=== PATIENT | male | born 1950 | race African-American/Black ===

== ENCOUNTER 2016-10-24 23:05 | Inpatient (IN) | payer MEDICARE, MEDICAID ==
[~2016-10-24] VITALS: Ht 182.9 cm; Wt 178.7 kg
[~2016-10-24 23:05] MED LIST: ASCO500T10 PO; ASPI-605 PO; AZIT1PAC PO; CARI350T PO; CHOL100044 PO; DOCU250C75 PO; FURO-144 PO; GABA-534 PO; GUAI120L24 PO; HYDR-548 PO; IPRA3AMP IH; LISI-603 PO; MAGN400O6 PO; MULT-24 PO; ONDA4TAB5 PO; PANT40TA4 PO; POTA-10 PO; SIMV10TA6 PO
[2016-10-24] MEDS ORDERED: ASPIRIN 81 MG TAB.CHEW ONE (23:19)
[2016-10-24] MEDS ORDERED: ASPIRIN 81 MG TAB.CHEW PO ONE (23:30)
[2016-10-25 00:06] LABS: ANION GAP 9 (5-14); CALCIUM, SERUM 8.6 mg/dL (8.5-10.1); CARBON DIOXIDE 33 mmol/L (21-32); CHLORIDE 107 mmol/L (98-107); CREATININE 0.8 mg/dL (0.6-1.3); GFR 117 mL/min (>60); GLUCOSE 115 mg/dL (74-106); SODIUM SERUM 145 mmol/L (136-145); UREA NITROGEN, BLOOD 11 mg/dL (7-18)
[2016-10-25 00:14] LABS: TROPONIN I < 0.017 ng/mL (0.00-0.056)
[2016-10-25 00:21] LABS: INR 0.99 (0.87-1.13); PROTHROMBIN TIME 10.7 SECS (9.5-12.7)
[2016-10-25 00:25] LABS: BASOPHILS # (AUTO) 0.1 /CMM (0.0-0.2); DIFF TOTAL % 100 %; EOSINOPHILS # (AUTO) 0.2 /CMM (0.0-0.7); EOSINOPHILS % (AUTO) 3.3 % (0.0-6.0); HEMATOCRIT 35 % (39-51); HEMOGLOBIN 10.3 g/dL (13.5-17.5); LYMPHOCYTES # (AUTO) 1.7 /CMM (0.8-4.8); LYMPHOCYTES % (AUTO) 23.4 % (20.0-44.0); MEAN CORPUSCULAR HEMOGLOBIN 23 PG (26.0-33.0); MEAN CORPUSCULAR HGB CONC 30 g/dl (31.0-36.0); MEAN CORPUSCULAR VOLUME 76 fL (80-96); MONOCYTES # (AUTO) 0.7 /CMM (0.1-1.30); MONOCYTES % (AUTO) 10.1 % (2.0-12.0); NEUTROPHILS # (AUTO) 4.4 /CMM (1.8-8.9); NEUTROPHILS % (AUTO) 61.2 % (43.0-81.0); PLATELET COUNT (AUTO) 298 /CMM (150-450); RED BLOOD CELL COUNT(AUTO) 4.54 MIL/uL (4.5-6.0); WHITE BLOOD COUNT (AUTO) 7.1 K/uL (4.3-11.0)
[2016-10-25 01:00] VITALS: BP 102/70
[2016-10-25 01:10] VITALS: BP 102/70
[2016-10-25] MEDS ORDERED: ENOXAPARIN SODIUM 30 MG/0.3 ML DISP.SYRIN SQ SCH ×2 (02:30→09:00)
[2016-10-25] MEDS ORDERED: MAG HYDROX/AL HYDROX/SIMETH 30 ML UDC PO PRN (02:30)
[2016-10-25] MEDS ORDERED: MAGNESIUM HYDROXIDE 30 ML UDC PO PRN (02:30)
[2016-10-25] MEDS ORDERED: ACETAMINOPHEN 325 MG TABLET PO PRN (02:30)
[2016-10-25] MEDS ORDERED: ONDANSETRON HCL/PF 4 MG/2 ML VIAL ONE (03:54)
[2016-10-25] MEDS ORDERED: MORPHINE SULFATE INJ 4 MG/ML DISP.SYRIN ONE (04:24)
[2016-10-25] MEDS: ONDANSETRON HCL/PF 4 MG/2 ML VIAL IVP PRN ×2 (04:29→09:42)
[2016-10-25] MEDS: MORPHINE SULFATE INJ 4 MG/ML DISP.SYRIN IV PRN ×2 (04:30→09:43)
[2016-10-25 04:41] VITALS: BP 127/73
[2016-10-25 06:22] LABS: BASOPHILS % (AUTO) 0.2 % (0.0-2.0); DIFF TOTAL % 100 %; EOSINOPHILS # (AUTO) 0.2 /CMM (0.0-0.7); HEMATOCRIT 33 % (39-51); HEMOGLOBIN 9.8 g/dL (13.5-17.5); LYMPHOCYTES # (AUTO) 2.1 /CMM (0.8-4.8); LYMPHOCYTES % (AUTO) 29.1 % (20.0-44.0); MEAN CORPUSCULAR HEMOGLOBIN 23 PG (26.0-33.0); MEAN CORPUSCULAR HGB CONC 30 g/dl (31.0-36.0); MEAN CORPUSCULAR VOLUME 76 fL (80-96); MONOCYTES # (AUTO) 0.8 /CMM (0.1-1.30); MONOCYTES % (AUTO) 11.5 % (2.0-12.0); NEUTROPHILS % (AUTO) 56.2 % (43.0-81.0); PLATELET COUNT (AUTO) 295 /CMM (150-450); RED BLOOD CELL COUNT(AUTO) 4.28 MIL/uL (4.5-6.0); WHITE BLOOD COUNT (AUTO) 7.1 K/uL (4.3-11.0)
[2016-10-25 06:29] LABS: ANION GAP 12 (5-14); CALCIUM, SERUM 8.5 mg/dL (8.5-10.1); CARBON DIOXIDE 29 mmol/L (21-32); CHLORIDE 105 mmol/L (98-107); CREATININE 0.8 mg/dL (0.6-1.3); GFR 117 mL/min (>60); GLUCOSE 156 mg/dL (74-106); POTASSIUM 3.7 mmol/L (3.5-5.1); SODIUM SERUM 142 mmol/L (136-145); UREA NITROGEN, BLOOD 12 mg/dL (7-18)
[2016-10-25 06:41] LABS: TROPONIN I < 0.017 ng/mL (0.00-0.056)
[2016-10-25 06:42] LABS: CHOLESTEROL 157 mg/dL (<200); HDL CHOLESTEROL 64 mg/dL (40-60); LDL 76 mg/dL (0-99); TRIGLYCERIDES 97 mg/dL (30-150)
[2016-10-25 07:08] LABS: IRON, SERUM 20 ug/dl (50-175); PERCENT SATURATION 5 % (14-33); TOTAL IRON BINDING CAPACITY 376 ug/dl (250-450)
[2016-10-25] MEDS ORDERED: PANTOPRAZOLE 40 MG TABLET.DR PO SCH ×2 (07:30)
[2016-10-25 08:00] VITALS: BP 120/71
[2016-10-25] MEDS ORDERED: IPRATROPIUM NEB FS 0.5 MG/2.5 ML AMPUL.NEB NEB PRN (09:00)
[2016-10-25] MEDS ORDERED: ALBUTEROL FS 2.5 MG/0.5 ML VIAL.NEB NEB PRN (09:00)
[2016-10-25] MEDS: GABAPENTIN 300 MG CAPSULE PO SCH ×2 (09:22→17:32)
[2016-10-25] MEDS: FUROSEMIDE 40 MG TABLET PO SCH ×2 (09:23→17:32)
[2016-10-25] MEDS: DOCUSATE SODIUM 250 MG CAPSULE PO SCH ×2 (09:23→17:32)
[2016-10-25] MEDS: ASCORBIC ACID 500 MG TABLET PO SCH (09:23)
[2016-10-25] MEDS: ASPIRIN EC 81 MG TABLET.DR PO SCH (09:23)
[2016-10-25] MEDS: MULTIVITAMINS,THERAPEUTIC 1 UDTAB TABLET PO SCH (09:23)
[2016-10-25] MEDS: LISINOPRIL (20MG) 20 MG TABLET PO SCH (09:23)
[2016-10-25] MEDS: POTASSIUM CHLORIDE 10 MEQ TABLET.SA PO SCH (09:23)
[2016-10-25] MEDS: PANTOPRAZOLE 40 MG TABLET.DR PO SCH (09:23)
[2016-10-25] MEDS: CHOLECALCIFEROL 1,000 UNIT TABLET (VIT D3) PO SCH (09:23)
[2016-10-25] MEDS: AMLODIPINE BESYLATE 10 MG TABLET PO SCH (09:42)
[2016-10-25] MEDS ORDERED: IV SET PRIMARY PUMP SET 1 EA INFUS.SET MC ONE (10:16)
[2016-10-25] MEDS: Magnesium 1GM/D5W 100ML PREMIX 100 ML IV SCH ×2 (10:20→11:30)
[2016-10-25] MEDS ORDERED: IV NS 0.9% 250 ML IV ONE (11:27)
[2016-10-25] MEDS ORDERED: SECONDARY IV SET 1 EA INFUS.SET MC ONE (11:27)
[2016-10-25] MEDS: HYDROCODONE/APAP 10/325MG 1 EA TABLET PO PRN ×2 (13:05→23:26)
[2016-10-25] MEDS: SOD FERRIC GLUC 125 MG in IV NS 0.9% 100 ML IV SCH (13:39)
[2016-10-25 16:00] VITALS: BP 141/76
[2016-10-25] MEDS: SIMVASTATIN 10 MG TABLET PO SCH (17:32)
[2016-10-25] MEDS: CARISOPRODOL 350 MG TABLET PO PRN (17:35)
[2016-10-25] MEDS: CELECOXIB 100 MG CAPSULE PO SCH ×3 (18:00→21:00)
[2016-10-25 20:00] VITALS: BP_SYST 153; BP_SYST 174; BP_DIAS 75; BP_DIAS 93
[2016-10-25] MEDS: ENOXAPARIN SODIUM 40 MG/0.4 ML DISP.SYRIN SQ SCH (21:00)
[2016-10-26 08:00] VITALS: BP 105/69
[2016-10-26] MEDS: predniSONE 10 MG TABLET PO SCH (08:00)
[2016-10-26] MEDS: POTASSIUM CHLORIDE 10 MEQ TABLET.SA PO SCH (08:39)
[2016-10-26] MEDS: CARISOPRODOL 350 MG TABLET PO PRN (08:39)
[2016-10-26] MEDS: GABAPENTIN 300 MG CAPSULE PO SCH ×3 (08:39→17:01)
[2016-10-26] MEDS: MULTIVITAMINS,THERAPEUTIC 1 UDTAB TABLET PO SCH (08:39)
[2016-10-26] MEDS: FUROSEMIDE 40 MG TABLET PO SCH ×2 (08:39→17:00)
[2016-10-26] MEDS: AMLODIPINE BESYLATE 10 MG TABLET PO SCH (08:40)
[2016-10-26] MEDS: ASPIRIN EC 81 MG TABLET.DR PO SCH (08:40)
[2016-10-26] MEDS: LISINOPRIL (20MG) 20 MG TABLET PO SCH (08:40)
[2016-10-26] MEDS: ASCORBIC ACID 500 MG TABLET PO SCH (08:40)
[2016-10-26] MEDS: HYDROCODONE/APAP 10/325MG 1 EA TABLET PO PRN ×4 (08:40→22:36)
[2016-10-26] MEDS: CHOLECALCIFEROL 1,000 UNIT TABLET (VIT D3) PO SCH (08:40)
[2016-10-26] MEDS: PANTOPRAZOLE 40 MG TABLET.DR PO SCH (08:40)
[2016-10-26] MEDS: DOCUSATE SODIUM 250 MG CAPSULE PO SCH ×2 (08:40→17:00)
[2016-10-26] MEDS: CELECOXIB 100 MG CAPSULE PO SCH ×2 (08:41→21:00)
[2016-10-26 09:32] LABS: BASOPHILS # (AUTO) 0.1 /CMM (0.0-0.2); BASOPHILS % (AUTO) 1.5 % (0.0-2.0); DIFF TOTAL % 100 %; EOSINOPHILS # (AUTO) 0.3 /CMM (0.0-0.7); HEMATOCRIT 32 % (39-51); HEMOGLOBIN 10.2 g/dL (13.5-17.5); LYMPHOCYTES # (AUTO) 1.8 /CMM (0.8-4.8); LYMPHOCYTES % (AUTO) 27.5 % (20.0-44.0); MEAN CORPUSCULAR HEMOGLOBIN 24 PG (26.0-33.0); MEAN CORPUSCULAR HGB CONC 32 g/dl (31.0-36.0); MEAN CORPUSCULAR VOLUME 73 fL (80-96); MONOCYTES # (AUTO) 0.8 /CMM (0.1-1.30); MONOCYTES % (AUTO) 11.5 % (2.0-12.0); NEUTROPHILS # (AUTO) 3.7 /CMM (1.8-8.9); NEUTROPHILS % (AUTO) 55.5 % (43.0-81.0); PLATELET COUNT (AUTO) 394 /CMM (150-450); RED BLOOD CELL COUNT(AUTO) 4.36 MIL/uL (4.5-6.0); WHITE BLOOD COUNT (AUTO) 6.6 K/uL (4.3-11.0)
[2016-10-26 09:58] LABS: LYMPHOCYTES % (MANUAL) 34 % (16-48)
[2016-10-26 09:59] LABS: ANISOCYTOSIS 3+; PLATELET ESTIMATE ADEQUATE
[2016-10-26 13:05] LABS: TROPONIN I < 0.017 ng/mL (0.00-0.056)
[2016-10-26 13:28] LABS: ANION GAP 10 (5-14); CALCIUM, SERUM 8.5 mg/dL (8.5-10.1); CARBON DIOXIDE 31 mmol/L (21-32); CHLORIDE 103 mmol/L (98-107); CREATININE 0.8 mg/dL (0.6-1.3); GFR 117 mL/min (>60); GLUCOSE 105 mg/dL (74-106); POTASSIUM 4.2 mmol/L (3.5-5.1); SODIUM SERUM 140 mmol/L (136-145); UREA NITROGEN, BLOOD 14 mg/dL (7-18)
[2016-10-26] MEDS: SOD FERRIC GLUC 125 MG in IV NS 0.9% 100 ML IV SCH (13:48)
[2016-10-26 16:00] VITALS: BP 115/78
[2016-10-26] MEDS: SIMVASTATIN 10 MG TABLET PO SCH (17:00)
[2016-10-26 20:00] VITALS: BP 117/75
[2016-10-26] MEDS: ENOXAPARIN SODIUM 40 MG/0.4 ML DISP.SYRIN SQ SCH (21:00)
[2016-10-27] MEDS: HYDROCODONE/APAP 10/325MG 1 EA TABLET PO PRN ×2 (02:45→08:55)
[2016-10-27 08:00] VITALS: BP_SYST 146; BP_DIAS 80; BP_DIAS 84
[2016-10-27] MEDS: predniSONE 10 MG TABLET PO SCH (08:51)
[2016-10-27] MEDS: GABAPENTIN 300 MG CAPSULE PO SCH ×2 (08:51→12:23)
[2016-10-27] MEDS: CELECOXIB 100 MG CAPSULE PO SCH (08:51)
[2016-10-27] MEDS: ASCORBIC ACID 500 MG TABLET PO SCH (08:52)
[2016-10-27] MEDS: DOCUSATE SODIUM 250 MG CAPSULE PO SCH (08:52)
[2016-10-27] MEDS: CHOLECALCIFEROL 1,000 UNIT TABLET (VIT D3) PO SCH (08:53)
[2016-10-27] MEDS: PANTOPRAZOLE 40 MG TABLET.DR PO SCH (08:53)
[2016-10-27] MEDS: ASPIRIN EC 81 MG TABLET.DR PO SCH (08:53)
[2016-10-27] MEDS: POTASSIUM CHLORIDE 10 MEQ TABLET.SA PO SCH (08:53)
[2016-10-27] MEDS: MULTIVITAMINS,THERAPEUTIC 1 UDTAB TABLET PO SCH (08:53)
[2016-10-27] MEDS: FUROSEMIDE 40 MG TABLET PO SCH (08:53)
[2016-10-27] MEDS: AMLODIPINE BESYLATE 10 MG TABLET PO SCH (08:54)
[2016-10-27] MEDS: LISINOPRIL (20MG) 20 MG TABLET PO SCH (08:54)
[2016-10-27] MEDS ORDERED: Z GUARD REMEDY 2 OZ OINT TP SCH (10:30)
[2016-10-27] MEDS ORDERED: Z GUARD REMEDY 2 OZ OINT TP PRN (10:30)
[2016-10-27] MEDS: SOD FERRIC GLUC 125 MG in IV NS 0.9% 100 ML IV SCH (14:06)
[2016-10-27 16:00] VITALS: BP 119/62
[2016-10-27 16:43] VITALS: BP 119/62
[2016-10-27] MEDS ORDERED: MUPIROCIN OINT 2% 22 GM TUBE SCH (21:00)
== END 2016-10-27 17:00 | disposition home or self-care (01) | DRG 205 ==
LOC: ER 23:08 → TELE 23:55 → MED 10-25 00:02 → TELE 10-25 10:03 → MED 10-25 13:41
PROVIDERS: ADMIT Nurse Practitioner Acute Care; ATTEND Nurse Practitioner Acute Care
PROC: 05H533Z Insertion of Infusion Device into Right Subclavian Vein, Percutaneous Approach (ICD-10-PCS; principal; 2016-10-25)
DX: M94.0 Chondrocostal junction syndrome [Tietze] (principal); E43 Unspecified severe protein-calorie malnutrition; J44.0 Chronic obstructive pulmonary disease with (acute) lower respiratory infection; I50.32 Chronic diastolic (congestive) heart failure; Z68.43 Body mass index [BMI] 50.0-59.9, adult; K57.92 Diverticulitis of intestine, part unspecified, without perforation or abscess without bleeding; E11.9 Type 2 diabetes mellitus without complications; E66.01 Morbid (severe) obesity due to excess calories; E78.5 Hyperlipidemia, unspecified; E88.81 Metabolic syndrome and other insulin resistance; F17.210 Nicotine dependence, cigarettes, uncomplicated; G47.33 Obstructive sleep apnea (adult) (pediatric); G89.29 Other chronic pain; I25.10 Atherosclerotic heart disease of native coronary artery without angina pectoris; J20.9 Acute bronchitis, unspecified; M19.90 Unspecified osteoarthritis, unspecified site; K21.9 Gastro-esophageal reflux disease without esophagitis; D50.9 Iron deficiency anemia, unspecified; J45.909 Unspecified asthma, uncomplicated; I11.0 Hypertensive heart disease with heart failure
CPT/HCPCS: 36415; 71010-TC; 80048-TC; 80061-TC; 83540-TC; 83735-TC; 83880; 84100-TC; 84484-TC; 85025-TC; 85730-TC; 87081-TC; A4606; J1650; J2270; J2405; J2916; J3475; J7030; J7050; Z7610

== ENCOUNTER 2016-11-10 18:51 | Inpatient (IN) | payer MEDICARE, BC ==
[~2016-11-10] VITALS: Ht 182.9 cm; Wt 172.1 kg
[2016-11-10] MEDS ORDERED: MORPHINE SULFATE INJ 2 MG/ML DISP.SYRIN IV ONE (19:00)
[2016-11-10] MEDS ORDERED: FUROSEMIDE 40 MG/4 ML VIAL IV ONE (19:00)
[2016-11-10] MEDS ORDERED: IPRATROPIUM NEB FS 0.5 MG/2.5 ML AMPUL.NEB NEB ONE (19:00)
[2016-11-10] MEDS ORDERED: ALBUTEROL FS 2.5 MG/3 ML VIAL.NEB NEB ONE (19:00)
[2016-11-10] MEDS ORDERED: methylPREDNISolone SOD SUCC 125 MG/2ML VIAL IV ONE (19:00)
[2016-11-10] MEDS ORDERED: ONDANSETRON HCL/PF 4 MG/2 ML VIAL IVP ONE (19:00)
[2016-11-10] MEDS ORDERED: NITROGLYCERIN PACKET 1 GM PACKET TD ONE (19:00)
[2016-11-10] MEDS ORDERED: ONDANSETRON HCL/PF 4 MG/2 ML VIAL ONE (19:02)
[2016-11-10] MEDS ORDERED: NITROGLYCERIN PACKET 1 GM PACKET ONE (19:02)
[2016-11-10] MEDS ORDERED: FUROSEMIDE 40 MG/4 ML VIAL ONE (19:02)
[2016-11-10] MEDS ORDERED: MORPHINE SULFATE INJ 4 MG/ML DISP.SYRIN ONE (19:02)
[2016-11-10] MEDS ORDERED: methylPREDNISolone SOD SUCC 125 MG/2ML VIAL ONE (19:02)
[2016-11-10 19:17] LABS: BASOPHILS # (AUTO) 0.1 /CMM (0.0-0.2); BASOPHILS % (AUTO) 1.4 % (0.0-2.0); DIFF TOTAL % 100 %; EOSINOPHILS # (AUTO) 0.2 /CMM (0.0-0.7); EOSINOPHILS % (AUTO) 2.6 % (0.0-6.0); HEMATOCRIT 33 % (39-51); HEMOGLOBIN 10.5 g/dL (13.5-17.5); LYMPHOCYTES # (AUTO) 2.2 /CMM (0.8-4.8); LYMPHOCYTES % (AUTO) 22.8 % (20.0-44.0); MEAN CORPUSCULAR HEMOGLOBIN 24 PG (26.0-33.0); MEAN CORPUSCULAR HGB CONC 31 g/dl (31.0-36.0); MEAN CORPUSCULAR VOLUME 78 fL (80-96); MONOCYTES # (AUTO) 0.7 /CMM (0.1-1.30); MONOCYTES % (AUTO) 7.9 % (2.0-12.0); NEUTROPHILS # (AUTO) 6.3 /CMM (1.8-8.9); NEUTROPHILS % (AUTO) 65.3 % (43.0-81.0); PLATELET COUNT (AUTO) 443 /CMM (150-450); WHITE BLOOD COUNT (AUTO) 9.5 K/uL (4.3-11.0)
[2016-11-10 19:27] LABS: ANION GAP 10 (5-14); CALCIUM, SERUM 8.6 mg/dL (8.5-10.1); CARBON DIOXIDE 30 mmol/L (21-32); CHLORIDE 106 mmol/L (98-107); CREATININE 0.9 mg/dL (0.6-1.3); GFR 102 mL/min (>60); GLUCOSE 159 mg/dL (74-106); POTASSIUM 4.6 mmol/L (3.5-5.1); SODIUM SERUM 141 mmol/L (136-145); UREA NITROGEN, BLOOD 15 mg/dL (7-18)
[2016-11-10 19:31] LABS: INR 0.99 (0.87-1.13); PROTHROMBIN TIME 10.4 SECS (9.5-12.7)
[2016-11-10 19:35] LABS: TROPONIN I < 0.017 ng/mL (0.00-0.056)
[2016-11-10] MEDS ORDERED: IPRATROPIUM NEB FS 0.5 MG/2.5 ML AMPUL.NEB ONE (19:45)
[2016-11-10] MEDS ORDERED: ALBUTEROL FS 2.5 MG/3 ML VIAL.NEB ONE (19:45)
[2016-11-10 21:30] VITALS: BP 149/87
[2016-11-11] VITALS (7 sets, daily range): BP systolic 127–153; BP diastolic 71–88
[2016-11-11] MEDS ORDERED: ZOLPIDEM TARTRATE 5 MG TABLET PO PRN
[2016-11-11] MEDS ORDERED: ENOXAPARIN SODIUM 40 MG/0.4 ML DISP.SYRIN SQ SCH
[2016-11-11] MEDS ORDERED: Z GUARD REMEDY 2 OZ OINT TP PRN
[2016-11-11] MEDS ORDERED: ACETAMINOPHEN 325 MG TABLET PO PRN
[2016-11-11] MEDS ORDERED: ENOXAPARIN SODIUM 40 MG/0.4 ML DISP.SYRIN SQ ONE (00:16)
[2016-11-11] MEDS ORDERED: MORPHINE SULFATE INJ 2 MG/ML DISP.SYRIN ONE ×2 (00:31→03:52)
[2016-11-11] MEDS ORDERED: ONDANSETRON HCL/PF 4 MG/2 ML VIAL ONE (00:31)
[2016-11-11] MEDS: ONDANSETRON HCL/PF 4 MG/2 ML VIAL IVP PRN (00:35)
[2016-11-11] MEDS: MORPHINE SULFATE INJ 2 MG/ML DISP.SYRIN IV PRN ×7 (00:36→21:29)
[2016-11-11 07:11] LABS: DIFF TOTAL % 100 %; EOSINOPHILS % (AUTO) 0.1 % (0.0-6.0); HEMATOCRIT 36 % (39-51); HEMOGLOBIN 11.1 g/dL (13.5-17.5); LYMPHOCYTES # (AUTO) 0.9 /CMM (0.8-4.8); LYMPHOCYTES % (AUTO) 12.3 % (20.0-44.0); MEAN CORPUSCULAR HEMOGLOBIN 24 PG (26.0-33.0); MEAN CORPUSCULAR HGB CONC 31 g/dl (31.0-36.0); MEAN CORPUSCULAR VOLUME 77 fL (80-96); MONOCYTES # (AUTO) 0.2 /CMM (0.1-1.30); MONOCYTES % (AUTO) 2.2 % (2.0-12.0); NEUTROPHILS # (AUTO) 6.1 /CMM (1.8-8.9); NEUTROPHILS % (AUTO) 85.4 % (43.0-81.0); PLATELET COUNT (AUTO) 471 /CMM (150-450); RED BLOOD CELL COUNT(AUTO) 4.64 MIL/uL (4.5-6.0); WHITE BLOOD COUNT (AUTO) 7.1 K/uL (4.3-11.0)
[2016-11-11] MEDS: ALBUTEROL FS 2.5 MG/0.5 ML VIAL.NEB NEB SCH ×5 (07:35→22:44)
[2016-11-11] MEDS: IPRATROPIUM NEB FS 0.5 MG/2.5 ML AMPUL.NEB NEB SCH ×5 (07:35→22:44)
[2016-11-11 07:37] LABS: ALBUMIN 3.4 g/dL (3.4-5.0); BILIRUBIN,TOTAL 0.1 mg/dL (0.2-1.0); CALCIUM, SERUM 8.9 mg/dL (8.5-10.1); CREATININE 0.8 mg/dL (0.6-1.3); POTASSIUM 4.2 mmol/L (3.5-5.1); TOTAL PROTEIN, SERUM 7.4 g/dL (6.4-8.2)
[2016-11-11] MEDS: DOCUSATE SODIUM 250 MG CAPSULE PO SCH ×2 (08:41→17:25)
[2016-11-11] MEDS: FUROSEMIDE 40 MG TABLET PO SCH ×2 (08:41→17:25)
[2016-11-11] MEDS: GABAPENTIN 300 MG CAPSULE PO SCH ×2 (08:41→17:25)
[2016-11-11] MEDS: ASPIRIN EC 81 MG TABLET.DR PO SCH (08:41)
[2016-11-11] MEDS: LISINOPRIL (20MG) 20 MG TABLET PO SCH (08:41)
[2016-11-11] MEDS: predniSONE 20 MG TABLET PO SCH (08:41)
[2016-11-11 09:43] LABS: THYROID STIMULATING HORMONE 0.227 uIU/mL (0.358-3.74)
[2016-11-11] MEDS: FLUTICASONE/SALMETEROL DISKUS IH SCH ×2 (12:23→17:25)
[2016-11-11] MEDS: SIMVASTATIN 10 MG TABLET PO SCH (17:25)
[2016-11-11] MEDS: ENOXAPARIN SODIUM 40 MG/0.4 ML DISP.SYRIN SQ SCH (20:58)
[2016-11-12] MEDS: IPRATROPIUM NEB FS 0.5 MG/2.5 ML AMPUL.NEB NEB SCH ×5 (03:37→20:39)
[2016-11-12] MEDS: ALBUTEROL FS 2.5 MG/0.5 ML VIAL.NEB NEB SCH ×5 (03:37→20:39)
[2016-11-12] MEDS: MORPHINE SULFATE INJ 2 MG/ML DISP.SYRIN IV PRN ×5 (05:31→21:12)
[2016-11-12 08:00] VITALS: BP 133/83
[2016-11-12] MEDS: ASPIRIN EC 81 MG TABLET.DR PO SCH (08:40)
[2016-11-12] MEDS: predniSONE 20 MG TABLET PO SCH (08:40)
[2016-11-12] MEDS: DOCUSATE SODIUM 250 MG CAPSULE PO SCH ×2 (08:40→16:09)
[2016-11-12] MEDS: FLUTICASONE/SALMETEROL DISKUS IH SCH ×2 (08:40→16:10)
[2016-11-12] MEDS: FUROSEMIDE 40 MG TABLET PO SCH ×2 (08:40→16:09)
[2016-11-12] MEDS: GABAPENTIN 300 MG CAPSULE PO SCH ×2 (08:40→16:09)
[2016-11-12] MEDS: LISINOPRIL (20MG) 20 MG TABLET PO SCH (08:40)
[2016-11-12 16:00] VITALS: BP 141/69
[2016-11-12] MEDS: SIMVASTATIN 10 MG TABLET PO SCH (16:09)
[2016-11-12 20:00] VITALS: BP_SYST 118; BP_DIAS 62; BP_DIAS 72
[2016-11-12] MEDS: ENOXAPARIN SODIUM 40 MG/0.4 ML DISP.SYRIN SQ SCH (21:10)
[2016-11-13] MEDS: ALBUTEROL FS 2.5 MG/0.5 ML VIAL.NEB NEB SCH ×4 (00:19→11:30)
[2016-11-13] MEDS: IPRATROPIUM NEB FS 0.5 MG/2.5 ML AMPUL.NEB NEB SCH ×4 (00:20→11:30)
[2016-11-13] MEDS: MORPHINE SULFATE INJ 2 MG/ML DISP.SYRIN IV PRN ×3 (02:34→13:45)
[2016-11-13 08:00] VITALS: BP 136/80
[2016-11-13] MEDS: ASPIRIN EC 81 MG TABLET.DR PO SCH (08:25)
[2016-11-13] MEDS: FUROSEMIDE 40 MG TABLET PO SCH (08:25)
[2016-11-13] MEDS: DOCUSATE SODIUM 250 MG CAPSULE PO SCH (09:00)
[2016-11-13] MEDS: predniSONE 20 MG TABLET PO SCH (09:00)
[2016-11-13] MEDS: LISINOPRIL (20MG) 20 MG TABLET PO SCH (09:00)
[2016-11-13] MEDS: GABAPENTIN 300 MG CAPSULE PO SCH (09:00)
[2016-11-13] MEDS: FLUTICASONE/SALMETEROL DISKUS IH SCH (09:00)
[2016-11-13] MEDS ORDERED: PRED20TA PO (09:26)
[2016-11-13] MEDS: ONDANSETRON HCL/PF 4 MG/2 ML VIAL IVP PRN (13:45)
== END 2016-11-13 14:45 | disposition home or self-care (01) | DRG 190 ==
LOC: ER 18:53 → TELE 20:49 → MED 11-11 09:17
PROVIDERS: ADMIT Nurse Practitioner Acute Care; ATTEND Nurse Practitioner Acute Care
DX: J44.1 Chronic obstructive pulmonary disease with (acute) exacerbation (principal); E43 Unspecified severe protein-calorie malnutrition; I50.32 Chronic diastolic (congestive) heart failure; E66.2 Morbid (severe) obesity with alveolar hypoventilation; Z68.43 Body mass index [BMI] 50.0-59.9, adult; K21.9 Gastro-esophageal reflux disease without esophagitis; E78.5 Hyperlipidemia, unspecified; K57.90 Diverticulosis of intestine, part unspecified, without perforation or abscess without bleeding; K59.00 Constipation, unspecified; E11.9 Type 2 diabetes mellitus without complications; F17.210 Nicotine dependence, cigarettes, uncomplicated; Z59.0 Homelessness; G89.29 Other chronic pain; M54.9 Dorsalgia, unspecified; M19.90 Unspecified osteoarthritis, unspecified site; Z91.19 Patient's noncompliance with other medical treatment and regimen; I11.0 Hypertensive heart disease with heart failure
CPT/HCPCS: 36415; 71010-TC; 80048-TC; 80053-TC; 80061-TC; 83735-TC; 83880; 84100-TC; 84439-TC; 84443-TC; 84484-TC; 85025-TC; 85730-TC; 87081-TC; 94799-TC; 97001-TC; A4606; J1650; J1940; J2270; J2405; J2930; Z7610

== ENCOUNTER 2016-12-09 14:04 | Inpatient (IN) | payer BC, MEDICARE ==
[~2016-12-09] VITALS: Ht 182.9 cm; Wt 181.4 kg
[~2016-12-09 14:04] MED LIST changes: -AZIT1PAC PO; +PRED20TA PO
[2016-12-09] MEDS ORDERED: NITROGLYCERIN PACKET 1 GM PACKET TOP ONE (14:30)
[2016-12-09] MEDS ORDERED: NITROGLYCERIN PACKET 1 GM PACKET ONE (14:49)
[2016-12-09] MEDS ORDERED: ONDANSETRON HCL/PF 4 MG/2 ML VIAL ONE (15:32)
[2016-12-09 15:45] LABS: BASOPHILS % (AUTO) 0.6 % (0.0-2.0); DIFF TOTAL % 100 %; EOSINOPHILS # (AUTO) 0.2 /CMM (0.0-0.7); EOSINOPHILS % (AUTO) 4.2 % (0.0-6.0); HEMATOCRIT 36 % (39-51); LYMPHOCYTES # (AUTO) 1.5 /CMM (0.8-4.8); LYMPHOCYTES % (AUTO) 26.6 % (20.0-44.0); MEAN CORPUSCULAR HEMOGLOBIN 24 PG (26.0-33.0); MEAN CORPUSCULAR HGB CONC 31 g/dl (31.0-36.0); MEAN CORPUSCULAR VOLUME 78 fL (80-96); MONOCYTES # (AUTO) 0.6 /CMM (0.1-1.30); MONOCYTES % (AUTO) 10.2 % (2.0-12.0); NEUTROPHILS # (AUTO) 3.4 /CMM (1.8-8.9); NEUTROPHILS % (AUTO) 58.4 % (43.0-81.0); PLATELET COUNT (AUTO) 382 /CMM (150-450); RED BLOOD CELL COUNT(AUTO) 4.57 MIL/uL (4.5-6.0); WHITE BLOOD COUNT (AUTO) 5.8 K/uL (4.3-11.0)
[2016-12-09 15:47] LABS: ANION GAP 10 (5-14); CALCIUM, SERUM 8.6 mg/dL (8.5-10.1); CARBON DIOXIDE 31 mmol/L (21-32); CHLORIDE 107 mmol/L (98-107); CREATININE 0.7 mg/dL (0.6-1.3); GFR 137 mL/min (>60); GLUCOSE 87 mg/dL (74-106); POTASSIUM 3.9 mmol/L (3.5-5.1); SODIUM SERUM 144 mmol/L (136-145); UREA NITROGEN, BLOOD 7 mg/dL (7-18)
[2016-12-09 15:55] LABS: TROPONIN I < 0.017 ng/mL (0.00-0.056)
[2016-12-09 15:56] LABS: INR 1.05 (0.87-1.13); PROTHROMBIN TIME 11.3 SECS (9.5-12.7)
[2016-12-09] MEDS ORDERED: ONDANSETRON HCL/PF 4 MG/2 ML VIAL IV ONE (16:00)
[2016-12-09] MEDS ORDERED: MORPHINE SULFATE INJ 2 MG/ML DISP.SYRIN ONE (16:15)
[2016-12-09] MEDS ORDERED: MORPHINE SULFATE INJ 2 MG/ML DISP.SYRIN IV ONE (16:30)
[2016-12-09] MEDS ORDERED: IOHEXOL-350 100 ML VIAL IV ONE (16:35)
[2016-12-09] MEDS ORDERED: IV NS 0.9% 250 ML IV ONE (16:35)
[2016-12-09] MEDS ORDERED: CT SWABBABLE VALVE TRANS SET 1 EA INFUS.SET MC ONE (16:35)
[2016-12-09] MEDS ORDERED: MORP15TA71 PO (16:40)
[2016-12-09] MEDS ORDERED: OXYC30TA2 PO (16:40)
[2016-12-09] MEDS ORDERED: AMLO10TA2 PO (16:40)
[2016-12-09 17:03] LABS: ALBUMIN 3.5 g/dL (3.4-5.0); BILIRUBIN,DIRECT 0.1 mg/dL (0.0-0.2); BILIRUBIN,TOTAL 0.3 mg/dL (0.2-1.0); INDIRECT BILIRUBIN 0.2 mg/dL (0.0-1.1); TOTAL PROTEIN, SERUM 7.1 g/dL (6.4-8.2)
[2016-12-09] MEDS ORDERED: ACETAMINOPHEN 325 MG TABLET PO PRN (18:00)
[2016-12-09] MEDS ORDERED: MAG HYDROX/AL HYDROX/SIMETH 30 ML UDC PO PRN (18:00)
[2016-12-09] MEDS ORDERED: Z GUARD REMEDY 2 OZ OINT TP PRN (18:00)
[2016-12-09] MEDS ORDERED: MAGNESIUM HYDROXIDE 30 ML UDC PO PRN (18:00)
[2016-12-09] MEDS ORDERED: NITROGLYCERIN 0.4 MG/TAB BOTTLE SL PRN (18:00)
[2016-12-09] MEDS ORDERED: ONDANSETRON HCL/PF 4 MG/2 ML VIAL IVP PRN (18:00)
[2016-12-09] MEDS ORDERED: LEVOFLOXACIN (750 MG) 750 MG TABLET PO SCH (18:00)
[2016-12-09] MEDS ORDERED: IPRATROPIUM NEB FS 0.5 MG/2.5 ML AMPUL.NEB NEB PRN (18:00)
[2016-12-09] MEDS ORDERED: ZOLPIDEM TARTRATE 5 MG TABLET PO PRN (18:00)
[2016-12-09] MEDS ORDERED: ALBUTEROL FS 2.5 MG/3 ML VIAL.NEB NEB PRN (18:00)
[2016-12-09] MEDS ORDERED: oxyCODONE IR immediate release 5 MG CAPSULE PO PRN (18:00)
[2016-12-09] MEDS ORDERED: PANTOPRAZOLE 40 MG TABLET.DR PO ONE (19:16)
[2016-12-09] MEDS ORDERED: LEVOFLOXACIN (500MG) 500 MG TABLET PO SCH (20:00)
[2016-12-09] MEDS: SIMVASTATIN 10 MG TABLET PO SCH (21:04)
[2016-12-09] MEDS: methylPREDNISolone SOD SUCC 40 MG/ML VIAL IV SCH ×2 (21:04→23:51)
[2016-12-09 21:30] VITALS: BP 129/73
[2016-12-09] MEDS: ALBUTEROL FS 2.5 MG/3 ML VIAL.NEB NEB SCH (21:45)
[2016-12-09] MEDS: IPRATROPIUM NEB FS 0.5 MG/2.5 ML AMPUL.NEB NEB SCH (21:46)
[2016-12-09] MEDS: MORPHINE SULFATE INJ 2 MG/ML DISP.SYRIN IV PRN (22:45)
[2016-12-10] VITALS: BP 123/76
[2016-12-10] MEDS: MORPHINE SULFATE INJ 2 MG/ML DISP.SYRIN IV PRN (00:30)
[2016-12-10] MEDS: IPRATROPIUM NEB FS 0.5 MG/2.5 ML AMPUL.NEB NEB SCH ×6 (00:31→17:05)
[2016-12-10] MEDS: ALBUTEROL FS 2.5 MG/3 ML VIAL.NEB NEB SCH ×6 (00:31→17:05)
[2016-12-10 04:00] VITALS: BP 136/75
[2016-12-10] MEDS ORDERED: HYDROCODONE/APAP 5/325MG 1 EACH TABLET ONE (04:04)
[2016-12-10] MEDS: HYDROCODONE/APAP 5/325MG 1 EACH TABLET PO PRN ×2 (04:10→12:55)
[2016-12-10 05:22] LABS: DIFF TOTAL % 100 %; EOSINOPHILS % (AUTO) 0.1 % (0.0-6.0); HEMATOCRIT 35 % (39-51); HEMOGLOBIN 10.6 g/dL (13.5-17.5); LYMPHOCYTES # (AUTO) 1.1 /CMM (0.8-4.8); LYMPHOCYTES % (AUTO) 23.6 % (20.0-44.0); MEAN CORPUSCULAR HEMOGLOBIN 24 PG (26.0-33.0); MEAN CORPUSCULAR HGB CONC 31 g/dl (31.0-36.0); MEAN CORPUSCULAR VOLUME 77 fL (80-96); MONOCYTES # (AUTO) 0.8 /CMM (0.1-1.30); NEUTROPHILS # (AUTO) 2.8 /CMM (1.8-8.9); NEUTROPHILS % (AUTO) 60.3 % (43.0-81.0); PLATELET COUNT (AUTO) 365 /CMM (150-450); RED BLOOD CELL COUNT(AUTO) 4.49 MIL/uL (4.5-6.0); WHITE BLOOD COUNT (AUTO) 4.7 K/uL (4.3-11.0)
[2016-12-10] MEDS: methylPREDNISolone SOD SUCC 40 MG/ML VIAL IV SCH ×3 (05:23→17:04)
[2016-12-10 06:36] LABS: ANISOCYTOSIS 1+; HYPOCHROMASIA 1+; LYMPHOCYTES % (MANUAL) 7 % (16-48); PLATELET ESTIMATE ADEQUATE
[2016-12-10 07:00] VITALS: BP 148/88
[2016-12-10] MEDS ORDERED: PANTOPRAZOLE 40 MG TABLET.DR PO SCH ×2 (07:30)
[2016-12-10 08:00] VITALS: BP 148/88
[2016-12-10 08:40] LABS: ANION GAP 13 (5-14); CALCIUM, SERUM 8.7 mg/dL (8.5-10.1); CARBON DIOXIDE 28 mmol/L (21-32); CHLORIDE 103 mmol/L (98-107); CREATININE 0.8 mg/dL (0.6-1.3); GFR 117 mL/min (>60); GLUCOSE 250 mg/dL (74-106); PHOSPHORUS 2.8 mg/dL (2.5-4.9); POTASSIUM 4.4 mmol/L (3.5-5.1); SODIUM SERUM 139 mmol/L (136-145); UREA NITROGEN, BLOOD 10 mg/dL (7-18)
[2016-12-10] MEDS ORDERED: AMLODIPINE BESYLATE 10 MG TABLET PO SCH (09:00)
[2016-12-10] MEDS ORDERED: ASCORBIC ACID 500 MG TABLET PO SCH (09:00)
[2016-12-10] MEDS ORDERED: LISINOPRIL (20MG) 20 MG TABLET PO SCH (09:00)
[2016-12-10] MEDS ORDERED: MULTIVITAMINS,THERAPEUTIC 1 UDTAB TABLET PO SCH (09:00)
[2016-12-10] MEDS ORDERED: ASPIRIN EC 81 MG TABLET.DR PO SCH (09:00)
[2016-12-10] MEDS: FUROSEMIDE 40 MG TABLET PO SCH ×2 (09:13→17:04)
[2016-12-10] MEDS: DOCUSATE SODIUM 250 MG CAPSULE PO SCH ×2 (09:16→17:03)
[2016-12-10] MEDS: MORPHINE SULFATE SR 15 MG TABLET.SA PO SCH ×2 (09:19→17:03)
[2016-12-10 09:27] LABS: CHOLESTEROL 174 mg/dL (<200); HDL CHOLESTEROL 72 mg/dL (40-60); LDL 90 mg/dL (0-99); THYROID STIMULATING HORMONE 0.187 uIU/mL (0.358-3.74); TRIGLYCERIDES 46 mg/dL (30-150)
[2016-12-10 11:04] LABS: TROPONIN I < 0.017 ng/mL (0.00-0.056)
[2016-12-10] MEDS ORDERED: LEVO500T15 PO (14:20)
[2016-12-10] MEDS ORDERED: FLUT1DIS3 INH (14:21)
[2016-12-10 16:11] VITALS: BP 148/91
[2016-12-10] MEDS: SIMVASTATIN 10 MG TABLET PO SCH (17:05)
== END 2016-12-10 18:10 | disposition home or self-care (01) | DRG 140 ==
LOC: ER 14:07 → TELE 18:33 → MED 12-10 10:04
PROC: 05H533Z Insertion of Infusion Device into Right Subclavian Vein, Percutaneous Approach (ICD-10-PCS; principal; 2016-12-09)
DX: J44.1 Chronic obstructive pulmonary disease with (acute) exacerbation (principal); E43 Unspecified severe protein-calorie malnutrition; I25.10 Atherosclerotic heart disease of native coronary artery without angina pectoris; E11.9 Type 2 diabetes mellitus without complications; E78.5 Hyperlipidemia, unspecified; K21.9 Gastro-esophageal reflux disease without esophagitis; M19.90 Unspecified osteoarthritis, unspecified site; J45.909 Unspecified asthma, uncomplicated; G47.33 Obstructive sleep apnea (adult) (pediatric); E66.2 Morbid (severe) obesity with alveolar hypoventilation; F17.210 Nicotine dependence, cigarettes, uncomplicated; G89.29 Other chronic pain; I50.32 Chronic diastolic (congestive) heart failure; Z68.43 Body mass index [BMI] 50.0-59.9, adult; I11.0 Hypertensive heart disease with heart failure; Z76.5 Malingerer [conscious simulation]; J40 Bronchitis, not specified as acute or chronic
CPT/HCPCS: 36415; 71010-TC; 76700-TC; 80048-TC; 80061-TC; 80076-TC; 83735-TC; 83880; 84100-TC; 84443-TC; 84484-TC; 85025-TC; 85378-TC; 85730-TC; 87081-TC; 94799-TC; A4606; J2270; J2405; J2920; J7050; Q9967; Z7610

== ENCOUNTER 2017-03-28 21:54 | Inpatient (IN) | payer MEDICARE, MEDICAID ==
[~2017-03-28] VITALS: Ht 182.9 cm; Wt 182.8 kg
[~2017-03-28 21:54] MED LIST changes: +AMLO10TA2 PO; -CARI350T PO; -CHOL100044 PO; +FLUT1DIS3 INH; -GABA-534 PO; -GUAI120L24 PO; -HYDR-548 PO; -IPRA3AMP IH; +LEVO500T15 PO; -MAGN400O6 PO; +MORP15TA71 PO; +OXYC30TA2 PO; -PRED20TA PO
--- NOTE | 2017-03-28 21:55 | NUR ---
to bed 2 bib paramedics c/o midsternal chest pain radiating to LLE with numbness x1 hour officer captain. pt aaox4 no acute distress noted, resp even and unlabored. skin warm nondiaphoretic. place pt on cardiac monitoring, continuous pox, o2@2l/nc. pending er md rayo.
[2017-03-28] MEDS ORDERED: NITROGLYCERIN 0.4 MG/TAB BOTTLE SL ONE (22:30)
[2017-03-28] MEDS ORDERED: NITROGLYCERIN PACKET 1 GM PACKET TD ONE (22:30)
[2017-03-28] MEDS ORDERED: NITROGLYCERIN 0.4 MG/TAB BOTTLE ONE (22:43)
[2017-03-28] MEDS ORDERED: NITROGLYCERIN PACKET 1 GM PACKET ONE (22:43)
--- NOTE | 2017-03-28 22:58 | NUR ---
pt requesting morphine or dilaudid for chest pain. er md made aware with no orders received.
[2017-03-28 23:03] LABS: BASOPHILS # (AUTO) 0.1 /CMM (0.0-0.2); BASOPHILS % (AUTO) 0.5 % (0.0-2.0); HEMOGLOBIN 10.9 g/dL (13.5-17.5); MONOCYTES # (AUTO) 0.7 /CMM (0.1-1.30); RDW COEFFICIENT OF VARIATION 19.6 (11.5-15.0)
[2017-03-28 23:09] LABS: EOSINOPHILS # (AUTO) 0.2 /CMM (0.0-0.7); EOSINOPHILS % (AUTO) 1.4 % (0.0-6.0); HEMATOCRIT 36 % (39-51); LYMPHOCYTES # (AUTO) 2.1 /CMM (0.8-4.8); LYMPHOCYTES % (AUTO) 16.5 % (20.0-44.0); MEAN CORPUSCULAR HEMOGLOBIN 24 PG (26.0-33.0); MEAN CORPUSCULAR HGB CONC 31 g/dl (31.0-36.0); MEAN CORPUSCULAR VOLUME 80 fL (80-96); MONOCYTES % (AUTO) 5.5 % (2.0-12.0); NEUTROPHILS # (AUTO) 9.7 /CMM (1.8-8.9); NEUTROPHILS % (AUTO) 76.1 % (43.0-81.0); PLATELET COUNT (AUTO) 331 /CMM (150-450); RED BLOOD CELL COUNT(AUTO) 4.47 MIL/uL (4.5-6.0); WHITE BLOOD COUNT (AUTO) 12.8 K/uL (4.3-11.0)
[2017-03-28 23:17] LABS: CALCIUM, SERUM 8.3 mg/dL (8.5-10.1); CARBON DIOXIDE 33 mmol/L (21-32); CHLORIDE 108 mmol/L (98-107); CREATININE 0.7 mg/dL (0.6-1.3); GLUCOSE 118 mg/dL (74-106); POTASSIUM 4.3 mmol/L (3.5-5.1); SODIUM SERUM 144 mmol/L (136-145); UREA NITROGEN, BLOOD 13 mg/dL (7-18)
[2017-03-28 23:20] LABS: D-DIMER 0.61 mg/L(FEU (0.17-0.50); INR 0.98 (0.87-1.13); PROTHROMBIN TIME 10.5 SECS (9.5-12.7)
[2017-03-28 23:24] LABS: TROPONIN I < 0.017 ng/mL (0.00-0.056)
[2017-03-28 23:30] LABS: ALANINE AMINOTRANSFERASE 20 U/L (12-78); ALKALINE PHOSPHATASE 58 U/L (46-116); ASPARTATE AMINOTRANSFERASE 14 U/L (15-37); B-TYPE NATRIURETIC PEPTIDE 57 PG/ML (0-125); BILIRUBIN,DIRECT 0.1 mg/dL (0.0-0.2); BILIRUBIN,TOTAL 0.2 mg/dL (0.2-1.0); TOTAL PROTEIN, SERUM 6.3 g/dL (6.4-8.2)
[2017-03-29] MEDS ORDERED: ENOXAPARIN SODIUM 60 MG/0.6 ML DISP.SYRIN SQ ONE
--- NOTE | 2017-03-29 00:01 | NUR ---
evelyn jasmine at bedside to re-eval pt.
--- NOTE | 2017-03-29 00:04 | NUR ---
PT ASSIGNED TO [facility] [id number]
[2017-03-29] MEDS ORDERED: ENOXAPARIN SODIUM 80 MG/0.8 ML DISP.SYRIN SQ ONE (00:18)
[2017-03-29] MEDS ORDERED: ONDANSETRON 4 MG TAB.RAPDIS ONE (00:18)
[2017-03-29] MEDS ORDERED: HYDROCODONE/APAP 10/325MG 1 EA TABLET ONE (00:18)
[2017-03-29] MEDS ORDERED: ENOXAPARIN SODIUM 100 MG/ML DISP.SYRIN SQ ONE (00:19)
--- NOTE | 2017-03-29 00:26 | NUR ---
pt medicated as ordered.
[2017-03-29] MEDS ORDERED: HYDROCODONE/APAP 10/325MG 1 EA TABLET PO ONE (00:30)
[2017-03-29] MEDS ORDERED: ONDANSETRON 4 MG TAB.RAPDIS SL ONE (00:30)
--- NOTE | 2017-03-29 00:31 | NUR ---
report called to mental telepathist. pending hospital admission.
--- NOTE | 2017-03-29 00:41 | NUR ---
communications field technician at bedside for venous duplex.
--- NOTE | 2017-03-29 00:41 | NUR ---
evelyn jasmine talking to dr. pimentel regarding pt admission.
[2017-03-29] MEDS ORDERED: LEVOFLOXACIN (500MG) 500 MG TABLET PO SCH (01:00)
[2017-03-29] MEDS ORDERED: ZOLPIDEM TARTRATE 5 MG TABLET PO PRN (01:00)
[2017-03-29] MEDS ORDERED: MAGNESIUM HYDROXIDE 30 ML UDC PO PRN (01:00)
[2017-03-29] MEDS ORDERED: ACETAMINOPHEN 325 MG TABLET PO PRN (01:00)
[2017-03-29] MEDS ORDERED: MAG HYDROX/AL HYDROX/SIMETH 30 ML UDC PO PRN (01:00)
[2017-03-29] MEDS ORDERED: Z GUARD REMEDY 2 OZ OINT TP PRN (01:00)
[2017-03-29 01:05] VITALS: BP_SYST 97
[2017-03-29] MEDS ORDERED: LEVOFLOXACIN (500MG) 500 MG TABLET ONE (01:05)
[2017-03-29 01:10] VITALS: BP 138/97
[2017-03-29] MEDS ORDERED: GABA-534 PO (01:38)
[2017-03-29] MEDS ORDERED: CHOL200026 PO (01:38)
--- NOTE | 2017-03-29 02:36 | NUR ---
MS RN INITIAL NOTE RECEIVED PATIENT VIA MOHAMUD 0105 03/29/17 FROM ER AT VIA ACLS PROTOCOL WITH NO S/S OF RESPIRATORY DISTRESS OR SOB. IV SITE INTACT WITH NO S/S OF INFILTRATION NOTED. HEAD TO TOE ASSESSMENT IS DONE SKIN IS INTACT. PATIENT AMBULATES WITH ASSISTANCE. NO COMPLAIN OF CHEST PAIN AT THIS TIME. SAFE ENVIRONMENT PROVIDED FREE OF CLUTTERS .BED IN LOCKED, LOW POSITION. CALL LIGHT WITHIN EASY REACH. WILL CONTINUE TO MONITOR. ATTACH TO TELE MONITOR.
--- NOTE | 2017-03-29 06:32 | NUR ---
MS RN CLOSING NOTES PATIENT COMFORTABLY ASLEEP AND EASILY AWAKEN, HEAD OF BED ELEVATED FOR BETTER LUNG EXPANSION ON 2LPM VIA NC 02 SAT AT 95% IV SITE INTACT WITH NO S/S OF INFILTRATION NOTED. ON ATB WITH NO A/R NOTED.NOT APPARENT DISTRESS. AFEBRILE, NO COMPLAIN OF CHEST PAIN, ALL NURSING CARE NEEDS PROVIDED AND RENDERED, NEEDS ATTENDED AND ANTICIPATED, KEPT CLEAN AND DRY AND COMFORTABLE, GOOD SKIN CARE PROVIDED. FREQUENT VISUAL CHECK DONE FOR SAFETY Q2H, SAFE HAZARD FREE ENVIRONMENT PROVIDED. CALL LIGHT WITHIN EASY TO REACH, ON LOW BED AT ALL TIMES TO ENSURE SAFETY, WILL ENDORSE TO THE NEXT SHIFT CONTINUE PLAN OF CARE. ATTACH TO TELE MONITOR SR 90.
[2017-03-29 07:16] VITALS: BP 133/80
[2017-03-29] MEDS ORDERED: PANTOPRAZOLE 40 MG TABLET.DR PO SCH (07:30)
--- NOTE | 2017-03-29 07:30 | NUR ---
CRUSHED STONE GRADER OPENING NOTE PATIENT IS ALERT AND ORIENTED x2. NO PAIN AT THIS TIME. NO SOB OR DISTRESS NOTED. CALL LIGHT WITHIN REACH. SAFETY MEASURES IMPLEMENTED. ABLE TO COMMUNICATE NEEDS. IV INTACT AND PATENT NO REDNESS OR SWELLING NOTED. HEAD OF THE BED ELEVATED TO PROMOTE OPTIMAL BREATHING, ON 2L/MIN OXYGEN VIA NASAL CANNULA. WILL CONTINUE TO MONITOR
[2017-03-29 08:00] VITALS: BP 133/80
[2017-03-29] MEDS ORDERED: ONDANSETRON 4 MG TAB.RAPDIS PO PRN (08:30)
[2017-03-29] MEDS ORDERED: POTASSIUM CHLORIDE 10 MEQ TABLET.SA PO SCH (09:00)
[2017-03-29] MEDS ORDERED: AMLODIPINE BESYLATE 10 MG TABLET PO SCH (09:00)
[2017-03-29] MEDS ORDERED: oxyCODONE IR immediate release 5 MG CAPSULE PO PRN (09:00)
[2017-03-29] MEDS ORDERED: ASPIRIN EC 81 MG TABLET.DR PO SCH (09:00)
[2017-03-29] MEDS ORDERED: FLUTICASONE/VILANTEROL 1 EACH BLST.W.DEV IH SCH (09:00)
[2017-03-29] MEDS ORDERED: DOCUSATE SODIUM 250 MG CAPSULE PO SCH (09:00)
[2017-03-29] MEDS ORDERED: LISINOPRIL (20MG) 20 MG TABLET PO SCH (09:00)
[2017-03-29] MEDS ORDERED: FLUTICASONE/SALMETEROL DISKUS IH SCH (09:00)
[2017-03-29] MEDS ORDERED: FUROSEMIDE 40 MG TABLET PO SCH (09:00)
[2017-03-29] MEDS ORDERED: MULTIVITAMINS,THERAPEUTIC 1 UDTAB TABLET PO SCH (09:00)
[2017-03-29] MEDS ORDERED: MORPHINE SULFATE SR 15 MG TABLET.SA PO SCH (09:00)
[2017-03-29] MEDS ORDERED: ASCORBIC ACID 500 MG TABLET PO SCH (09:00)
[2017-03-29 09:26] VITALS: BP 133/80
--- NOTE | 2017-03-29 09:30 | NUR ---
RN NOTE PATIENT D/C FROM TELE NOW ON MEDSUR
[2017-03-29] MEDS ORDERED: ENOXAPARIN SODIUM 40 MG/0.4 ML DISP.SYRIN SQ SCH (10:30)
--- NOTE | 2017-03-29 13:30 | NUR ---
MS RN AMA NOTE PATIENT IS ALERT AND ORIENTED x4. NO PAIN AT THIS TIME. NO SOB OR DISTRESS NOTED. IV REMOVED, SKIN INTACT. ALL BELONGINGS WITH PATIENT. PATIENT SIGNED AMA FORM, REFUSED DISCHARGE PAPERWORK TO BE GIVEN TO HIM. NOTIFIED DR. JOVEL AND NURSING TREKKING GUIDE OF PATIENT LEAVING AGAINST MEDICAL ADVICE. LET PATIENT KNOW RISKS AND BENEFITS OF AMA BUT PATIENT STILL REFUSED. LEFT VIA PRIVATE CAR Addendum: 03/29/17 at 1457 by DONNIE COOPER RN INCIDENT ON FILE [id number]
[2017-03-29] MEDS ORDERED: SIMVASTATIN 10 MG TABLET PO SCH (18:00)
[2017-03-29] MEDS ORDERED: LEVOFLOXACIN (750 MG) 750 MG TABLET PO SCH (21:00)
== END 2017-03-29 13:25 | disposition left against medical advice (07) | DRG 205 ==
LOC: ER 21:56 → TELE 03-29 00:42 → MED 03-29 10:57
PROVIDERS: ADMIT Family Medicine; ATTEND Family Medicine
DX: M94.0 Chondrocostal junction syndrome [Tietze] (principal); E43 Unspecified severe protein-calorie malnutrition; E66.2 Morbid (severe) obesity with alveolar hypoventilation; I50.32 Chronic diastolic (congestive) heart failure; Z68.43 Body mass index [BMI] 50.0-59.9, adult; E11.9 Type 2 diabetes mellitus without complications; E78.5 Hyperlipidemia, unspecified; F17.200 Nicotine dependence, unspecified, uncomplicated; G89.4 Chronic pain syndrome; I11.0 Hypertensive heart disease with heart failure; J44.9 Chronic obstructive pulmonary disease, unspecified; K21.9 Gastro-esophageal reflux disease without esophagitis; M19.90 Unspecified osteoarthritis, unspecified site; Z76.5 Malingerer [conscious simulation]; D72.829 Elevated white blood cell count, unspecified; J40 Bronchitis, not specified as acute or chronic
CPT/HCPCS: 36415; 71010-TC; 80048-TC; 80076-TC; 83880; 84484-TC; 85025-TC; 85378-TC; 85730-TC; 87081-TC; A4606; J1650; Q0162; Z7610

== ENCOUNTER 2017-06-27 23:08 | Inpatient (IN) | payer MEDICAID, MEDICARE ==
[~2017-06-27] VITALS: Ht 182.9 cm; Wt 176.0 kg
[~2017-06-27 23:08] MED LIST changes: +CHOL200026 PO; +GABA-534 PO; -LEVO500T15 PO
--- NOTE | 2017-06-27 23:10 | NUR ---
TO BED 6 A 67 YO MALE PT BIBSELF FROM HOME W C/O STABBING CP THAT RADIATES TO LEFT ARM AND SOB X 1 HOUR. PATIENT IS AAOX3, NONDIAPHORETIC. PLACED ON CARDIAC AND VS MONITORING. GOWNED. KEPT HOB ELEVATED. COMFORT MEASURES RENDERED.
--- NOTE | 2017-06-27 23:15 | NUR ---
DR OQUENDO AT BEDSIDE TO EVAL.
--- NOTE | 2017-06-27 23:24 | NUR ---
patient refused BIPAP inh. Health education provided for risks and benefits of BIPAP, patient still refused. Dr Baxter notified.
--- NOTE | 2017-06-27 23:41 | NUR ---
medicated patient as ordered by Dr Baxter.
--- NOTE | 2017-06-27 23:45 | NUR ---
patient reports relief from chest pain post [address] dose [address] nitro sl[address] Dr aBxter notified.
--- NOTE | 2017-06-27 23:51 | NUR ---
ash handler at bedside to draw blood.
--- NOTE | 2017-06-28 | NUR ---
ongoing breathing treatment by RT.
[2017-06-28 00:18] LABS: APPEARANCE,URINE CLEAR (CLEAR); BILIRUBIN,URINE NEGATIVE (NEGATIVE); BLOOD, URINE NEGATIVE Ery/uL (NEGATIVE); COLOR,URINE YELLOW (YELLOW); KETONES,URINE NEGATIVE (NEGATIVE); LEUKOCYTE ESTERASE ,URINE NEGATIVE (NEGATIVE); NITRITE, URINE NEGATIVE (NEGATIVE); PH,URINE 8.5 (5.0-8.0); PROTEIN,URINE NEGATIVE (NEGATIVE); UGLUCOSE NEGATIVE (NEGATIVE); UROBILINOGEN,URINE 0.2 EU/dL (0.2)
--- NOTE | 2017-06-28 01:08 | NUR ---
tele bed 317.2
[2017-06-28 01:41] LABS: BASOPHILS % (AUTO) 0.1 % (0.0-2.0); EOSINOPHILS # (AUTO) 0.2 /CMM (0.0-0.7); EOSINOPHILS % (AUTO) 2.5 % (0.0-6.0); HEMATOCRIT 37 % (39-51); HEMOGLOBIN 11.1 g/dL (13.5-17.5); LYMPHOCYTES # (AUTO) 1.7 /CMM (0.8-4.8); LYMPHOCYTES % (AUTO) 22.8 % (20.0-44.0); MEAN CORPUSCULAR HEMOGLOBIN 24 PG (26.0-33.0); MEAN CORPUSCULAR HGB CONC 30 g/dl (31.0-36.0); MEAN CORPUSCULAR VOLUME 80 fL (80-96); MONOCYTES # (AUTO) 0.7 /CMM (0.1-1.30); MONOCYTES % (AUTO) 9.7 % (2.0-12.0); NEUTROPHILS # (AUTO) 4.9 /CMM (1.8-8.9); NEUTROPHILS % (AUTO) 64.9 % (43.0-81.0); PLATELET COUNT (AUTO) 298 /CMM (150-450); RED BLOOD CELL COUNT(AUTO) 4.65 MIL/uL (4.5-6.0); WHITE BLOOD COUNT (AUTO) 7.5 K/uL (4.3-11.0)
[2017-06-28 01:54] LABS: CALCIUM, SERUM 8.5 mg/dL (8.5-10.1); CARBON DIOXIDE 36 mmol/L (21-32); CHLORIDE 106 mmol/L (98-107); CREATININE 0.7 mg/dL (0.6-1.3); GLUCOSE 126 mg/dL (74-106); POTASSIUM 3.4 mmol/L (3.5-5.1); SODIUM SERUM 147 mmol/L (136-145); UREA NITROGEN, BLOOD 11 mg/dL (7-18)
[2017-06-28 02:00] LABS: TROPONIN I < 0.017 ng/mL (0.00-0.056)
[2017-06-28 02:04] LABS: ALANINE AMINOTRANSFERASE 24 U/L (12-78); ALBUMIN 3.4 g/dL (3.4-5.0); ALKALINE PHOSPHATASE 59 U/L (46-116); ASPARTATE AMINOTRANSFERASE 14 U/L (15-37); B-TYPE NATRIURETIC PEPTIDE 125 PG/ML (0-125); BILIRUBIN,TOTAL 0.2 mg/dL (0.2-1.0); TOTAL PROTEIN, SERUM 6.8 g/dL (6.4-8.2)
--- NOTE | 2017-06-28 02:32 | NUR ---
REPORT GIVEN ARBI FOR ALLYN
[2017-06-28 02:54] LABS: D-DIMER 1.02 mg/L(FEU (0.17-0.50); INR 0.99 (0.87-1.13); PROTHROMBIN TIME 10.6 SECS (9.5-12.7)
[2017-06-28 02:56] VITALS: BP 148/87
--- NOTE | 2017-06-28 02:56 | NUR ---
RN NOTES RECEIVED PATIENT FROM ER FOR DX CHEST PAIN. AO X 3, ABLE TO MAKE NEEDS KNOWN. NO ACUTE DISTRESS NOTED. DENIES CHEST PAIN AT THIS TIME. TELE READING SINUS RHYTHM HR 90. SKIN INTACT. IV SITE PATENT, INTACT; FLUSHED. AMBULATES WITH A CANE. ON LOW BED WITH BILATERAL UPPER SIDE RAILS UP. CALL LIGHT WITHIN EASY REACH. WILL CONTINUE TO MONITOR. WILL CARRY OUT ADMISSION ORDERS.
--- NOTE | 2017-06-28 02:59 | NUR ---
Transferred patient to floor via als protocol, no incident noted.
[2017-06-28 03:00] VITALS: BP 148/87
--- NOTE | 2017-06-28 06:54 | NUR ---
RN NOTES PATIENT RESTING IN BED. RESPIRATIONS EVEN. PATIENT INITIALLY ASKED FOR TYLENOL FOR MILD GENERALIZED PAIN, BUT LATER CHANGED HIS MIND. TYLENOL RETURNED TO OMNICELL. NEEDS ATTENDED. SAFETY PRECAUTIONS AND COMFORT MEASURES IN PLACE. WILL GIVE REPORT TO DAY SHIFT FOR CONTINUITY OF CARE.
--- NOTE | 2017-06-28 07:38 | NUR ---
RN OPENING NOTES RECEIVED PATIENT AWAKE RESTING IN BED COMFORTABLY. PT AOX4. COMPLAINING OF GENERALIZED PAIN, SOB AND INTERMITTENT CP. RESPIRATIONS EVEN AND UNLABORED. NO ACUTE DISTRESS. PT VERY DEMANDING. IV ACCESS ON THE RIGHT WRIST 22G S/L. FACIAL RASH RECOGNIZE AND REPORTED TO NIGHT RN TO DOCUMENT. PT ON 2L NC. AMBULATORY WITH CANE. BED LOCKED IN THE LOWEST POSITION WITH SIDE RAILS UP X2. CALL LIGHT WITHIN REACH. WILL CONTINUE TO MONITOR ASSESS AND EDUCATE PATIENT THROUGHOUT SHIFT.
[2017-06-28 08:00] VITALS: BP 155/82
--- NOTE | 2017-06-28 08:09 | NUR ---
RN NOTES PATIENT ON TELE MONITOR READING SR 80. WILL CONTINUE TO MONITOR FOR CHANGES.
--- NOTE | 2017-06-28 09:05 | NUR ---
ALCIRA NON ADMIN NOTES PATIENT REFUSED BREO. PATIENT RECEIVED KDUR 10MEQ AT 0442 ONE TIME. HELD MEDICATIONS. Addendum: 06/28/17 at 910 by JOSE ENRIQUE ESPAÑA RN RN NON ADMIN NOTES PATIENT REFUSED BREO. PATIENT RECEIVED KDUR 10MEQ AT 0446 ONE TIME. HELD MEDICATIONS.
[2017-06-28 09:22] LABS: BASOPHILS % (AUTO) 0.4 % (0.0-2.0); EOSINOPHILS # (AUTO) 0.2 /CMM (0.0-0.7); EOSINOPHILS % (AUTO) 2.9 % (0.0-6.0); HEMATOCRIT 35 % (39-51); HEMOGLOBIN 10.1 g/dL (13.5-17.5); LYMPHOCYTES # (AUTO) 1.8 /CMM (0.8-4.8); LYMPHOCYTES % (AUTO) 25.2 % (20.0-44.0); MEAN CORPUSCULAR HEMOGLOBIN 24 PG (26.0-33.0); MEAN CORPUSCULAR HGB CONC 29 g/dl (31.0-36.0); MEAN CORPUSCULAR VOLUME 80 fL (80-96); MONOCYTES # (AUTO) 0.9 /CMM (0.1-1.30); MONOCYTES % (AUTO) 13.4 % (2.0-12.0); NEUTROPHILS # (AUTO) 4.1 /CMM (1.8-8.9); NEUTROPHILS % (AUTO) 58.1 % (43.0-81.0); PLATELET COUNT (AUTO) 211 /CMM (150-450); RDW COEFFICIENT OF VARIATION 17.8 (11.5-15.0); WHITE BLOOD COUNT (AUTO) 7.1 K/uL (4.3-11.0)
--- NOTE | 2017-06-28 10:49 | NUR ---
spoke to russ perez regarding exam @1015 hrs, was going to consultg with ordering md and get back to radiology , no consent on patient
[2017-06-28 10:55] LABS: CALCIUM, SERUM 8.2 mg/dL (8.5-10.1); CREATININE 0.7 mg/dL (0.6-1.3); MAGNESIUM 1.9 mg/dL (1.8-2.4); PHOSPHORUS 3.6 mg/dL (2.5-4.9); POTASSIUM 3.5 mmol/L (3.5-5.1)
[2017-06-28 10:56] LABS: T4 (THYROXINE) 5.9 ug/dL (4.7-13.3); THYROID STIMULATING HORMONE 0.922 uIU/mL (0.358-3.74); TROPONIN I 0.003 ng/mL (0.00-0.056)
--- NOTE | 2017-06-28 11:34 | NUR ---
RN NOTES CTA CHEST FOR DISSECTION NOT COMPLETED DURING LEAD NET SOFTWARE DEVELOPER. DISCUSSED WITH DR. FIERRO AND ORDERED FOR TEST TO BE CANCELLED NOTIFIED RADIOLOGY. WILL CARRY OUT ORDERS GIVEN.
--- NOTE | 2017-06-28 13:12 | NUR ---
RN NOTES PATIENT REFUSED HYDRALAZINE. PATIENT AWARE OF ELEVATED BP 140/80. PATIENT VERBALIZED UNDERSTANDING. WILL CONTINUE TO MONITOR.
[2017-06-28 16:00] VITALS: BP 124/71
--- NOTE | 2017-06-28 19:10 | NUR ---
RN OPENING NOTES RECEIVED REPORT FROM AM RN. PATIENT A/A/O X3-4 ABLE TO MAKE NEEDS KNOWN. BREATHING EVEN AND UNLABORED ON O2 2L VIA NC. DENIES SOB OR DIFFICULTY BREATHING. PULSES PRESENT. RIGHT WRIST IV #22 INTACT ON SALINE LOCK W/ DRESSING CDI. DENIES ANY PAIN OR DISCOMFORT @ THIS TIME. SAFETY MEASURES IN PLACE W/ SIDE RAILS UP BED LOCKED IN LOWEST POSITION & CALL LIGHT WITHIN REACH. WILL CONTINUE TO MONITOR.
--- NOTE | 2017-06-28 19:32 | NUR ---
RN CLOSING NOTES RECEIVED PATIENT AWAKE RESTING IN BED COMFORTABLY. PT AOX4. COMPLAINING OF GENERALIZED PAIN, SOB AND INTERMITTENT CP. RESPIRATIONS EVEN AND LABORED. BREATHING TREATMENT GIVEN. NO ACUTE DISTRESS. PT VERY DEMANDING. IV ACCESS ON THE RIGHT WRIST 22G S/L. PT ON 2L NC. BED LOCKED IN THE LOWEST POSITION WITH SIDE RAILS UP X2. CALL LIGHT WITHIN REACH. ALL NEEDS MET ALL MEDS GIVEN AT APPROPRIATE.
[2017-06-28 20:00] VITALS: BP 125/84
[2017-06-28 20:02] VITALS: BP 125/84
--- NOTE | 2017-06-29 07:18 | NUR ---
RN CLOSING NOTES PATIENT UP ON SIDE OF BED. SLEPT INTERMITTENTLY THROUGHOUT THE NIGHT W/ NO ACUTE RESPIRATORY DISTRESS. O2 REMAINED @ 2L VIA NC, TOLERATED WELL. NO BEHAVIORAL ISSUES NOTED DURING SHIFT. ALL DUE MEDS GIVEN. WILL ENDORSE ALLYN TO NEXT SHIFT.
--- NOTE | 2017-06-29 07:30 | NUR ---
MS RN OPENING NOTE RECEIVED REPORT ON THE PATIENT. IN BED A&OX4. PRESENTS WITH NON-LABORED, EVEN BREATHING ON OXYGEN 2L/MIN. BED IS IN LOWEST POSITION, SIDE RAILS UP X 2, CALL LIGHT WITHIN REACH. ALL NEEDS ATTENDED TO. WILL CONTINUE TO MONITOR.
--- NOTE | 2017-06-29 07:45 | NUR ---
MS RN NOTE CAME TO ADMINISTER SCHEDULED PROTONIX. PATIENT STATED HE WILL TAKE IT WITH 9AM MEDICATIONS. WILL ADMINISTER PER PATIENT'S REQUEST.
[2017-06-29 08:00] VITALS: BP 147/77
[2017-06-29 13:00] VITALS: BP 132/67
--- NOTE | 2017-06-29 15:19 | NUR ---
MS RN DISCHARGING NOTE DISCHARGE ORDER RECEIVED ON THE PATIENT. DISCHARGE EDUCATION PROVIDED TO THE PATIENT. PATIENT VERBALIZED UNDERSTANDING OF DISCHARGE TEACHINGS. PATIENT WILL BE LEAVING THE HOSPITAL VIA CAB. CALLED TO ARRANGE TAXI PICKUP FROM [facility] TO PATIENT'S RESIDENCE ADDRESS. SPOKE TO [employer] TAXI COMMUNICATIONS INTERN NUMBER [id number] PATI. PER COMMUNICATIONS INTERN THE CAR WILL BE HERE IN 15-20 MINUTES.
--- NOTE | 2017-06-29 15:55 | NUR ---
MS FIELD OPERATIONS MANAGER NOTE PATIENT LEFT THE FLOOR VIA BARIATRIC WHEELCHAIR ACCOMPANIED BY THE [employer]. CAB IS WAITING OUTSIDE THE LOBBY DOOR. IV CATHETER REMOVED. CATCHER TIP INTACT. OCCLUSIVE DRESSING IS APPLIED. PATIENT IS LEAVING THE FLOOR IN STABLE CONDITION. ALL BELONGINGS ARE ACCOUNTED FOR.
== END 2017-06-29 16:00 | disposition home or self-care (01) | DRG 194 ==
LOC: ER 23:11 → TELE 06-28 02:45 → MED 06-28 11:45
PROVIDERS: ADMIT Internal Medicine; ATTEND Internal Medicine
DX: I11.0 Hypertensive heart disease with heart failure (principal); E11.42 Type 2 diabetes mellitus with diabetic polyneuropathy; J44.9 Chronic obstructive pulmonary disease, unspecified; G89.29 Other chronic pain; I50.32 Chronic diastolic (congestive) heart failure; E66.2 Morbid (severe) obesity with alveolar hypoventilation; M19.90 Unspecified osteoarthritis, unspecified site; R07.89 Other chest pain; E78.5 Hyperlipidemia, unspecified; K21.9 Gastro-esophageal reflux disease without esophagitis; Z88.8 Allergy status to other drugs, medicaments and biological substances; F14.90 Cocaine use, unspecified, uncomplicated; Z79.82 Long term (current) use of aspirin; Z79.899 Other long term (current) drug therapy; Z82.49 Family history of ischemic heart disease and other diseases of the circulatory system; Z76.5 Malingerer [conscious simulation]; Z91.19 Patient's noncompliance with other medical treatment and regimen; Z68.43 Body mass index [BMI] 50.0-59.9, adult; K57.90 Diverticulosis of intestine, part unspecified, without perforation or abscess without bleeding; E44.1 Mild protein-calorie malnutrition
CPT/HCPCS: 36415; 71010-TC; 80048-TC; 80076-TC; 80305; 81000-TC; 83540-TC; 83735-TC; 83880; 84100-TC; 84436-TC; 84443-TC; 84484-TC; 85025-TC; 85378-TC; 85730-TC; 87081-TC; A4606; J1170; J1940; J2270; J2405; J3490; Z7610